=== PATIENT | male | born 1965 | race Native Hawaiian/Other Pacific Islander ===

== ENCOUNTER 2021-12-03 12:09 | Outpatient (CLI) | payer OTHER | END 2021-12-03 19:33 | disposition home or self-care (01) | LOC: RAD 12:09 | PROVIDERS: ATTEND Nurse Practitioner Family | DX: R05.9 Cough, unspecified (principal); R06.02 Shortness of breath ==

== ENCOUNTER 2021-12-07 09:52 | Emergency (ER) | payer OTHER ==
[~2021-12-07] VITALS: Ht 170.2 cm; Wt 81.6 kg
[2021-12-07 10:35] LABS: PLATELET COUNT 382 K/uL (142-355)
[2021-12-07 11:25] LABS: POTASSIUM 4.2 mmol/L (3.6-5.2)
[2021-12-07 13:38] VITALS: BP 116/71; TEMP 98
== END 2021-12-07 13:38 | disposition short-term general hospital (02) ==
LOC: ED 09:52
PROVIDERS: Emergency Medicine Emergency Medical Services
DX: R06.09 Other forms of dyspnea (principal); J98.4 Other disorders of lung; F17.210 Nicotine dependence, cigarettes, uncomplicated
CPT/HCPCS: 36415; 36600; 80053; 82805; 83605; 84484; 85027; 85379; 85610; 87040; 93005; 94664; 96360; 96361; 96365; 96375; 99284; J1956; J2930; Q9963

== ENCOUNTER 2022-02-18 10:15 | Emergency (ER) | payer OTHER ==
[~2022-02-18] VITALS: Ht 170.2 cm; Wt 76.2 kg
[2022-02-18 10:29] VITALS: BP 129/93; TEMP 97.1
[2022-02-18 10:45] LABS: PLATELET COUNT 261 K/uL (142-355)
[2022-02-18 10:54] LABS: POTASSIUM 4.5 mmol/L (3.6-5.2)
[2022-02-18 11:31] LABS: PARTIAL THROMBOPLASTIN TIME 24.3 SECONDS (24.5-33.6)
== END 2022-02-18 12:00 | disposition home or self-care (01) ==
LOC: ED 10:15
PROVIDERS: Emergency Medicine
DX: K62.5 Hemorrhage of anus and rectum (principal)
CPT/HCPCS: 80053; 83880; 84484; 85027; 85610; 85730; 93005; 99284